=== PATIENT | female | born 1945 | race Caucasian/White ===

== ENCOUNTER 2018-02-22 16:51 | Emergency (ER) | payer OTHER ==
[~2018-02-22] VITALS: Ht 154.9 cm; Wt 71.7 kg
[~2018-02-22 16:51] MED LIST: ZITHROMAX Z-PA250 M1 PO; [UNRECOGNIZED DRUG - OTHER] PO
--- NOTE | 2018-02-22 17:17 | ED GI/GU/ABDOMINAL COMPLAINT ---
History of Present Illness General Chief Complaint: General Adult Stated Complaint: STOMACH PAIN,VOMITING,DIZZY Source: patient Exam Limitations: no limitations Vital Signs & Intake/Output Vital Signs & Intake/Output Vital Signs Date Time Temp Pulse Resp B/P B/P Pulse O2 O2 Flow FiO2 Mean Ox Delivery Rate 02/22 1724 69 18 144/78 98 Room Air Room Air 02/22 1723 69 144/78 02/22 1707 78 16 137/84 96 Room Air Allergies Coded Allergies: azithromycin (RASH 02/22/18) morphine (HIVES 02/22/18) erythromycin base (VOMITING 02/22/18) Reconcile Medications Azithromycin (Zithromax Z-Eddi) 250 MG CAP 1 DP PO AD pneumonia 2 the first day followed by 1 for days 2-5 Codeine Phosphate/Guaifenesi (Robafen AC Cough Syrup 10 MG/5 Ml-100 MG/5 Ml) 120 ML SYR 1-2 TSP PO Q6P PRN COUGH/COLD SYMPTOMS Montelukast Sodium (Singulair) 10 MG TABLET 1 TAB PO DAILY ALLERGIES ( Reported) Topiramate (Topamax) 50 MG TABLET 50 MG PO DAILY MIGRAINES (Reported) Verapamil HCl (Verapamil ER) 180 MG TABLET.ER 1 TAB PO DAILY MIGRAINES ( Reported) Triage Nurses Notes Reviewed? yes ? N Is pt currently ? No Onset: Abrupt Duration: day(s): (1), constant Timing: recent history Quality/Severity: vomiting Severity Numbers: 6 Location: epigastric, right upper quadrant Radiation: no radiation No Modifying Factors: none Associated Symptoms: abdominal pain (d), denies HPI: Pleasant 72-year-old female who presents to the emergency department for sudden onset of right upper quadrant pain and nausea and vomiting. She has had no history of diarrhea recently but does feels the urge to go. She tells had a prior history of gallstones in the past and has had similar symptoms. She recently had a left hand surgery for trigger finger this past week. She was given Percocet and feels that this may have caused some of her symptoms-last dose was yesterday. These symptoms came on after taking the first pill. no hemetemesis. no chest pain. no shortness of breath. She has a history of ulcers in the past and takes medication for her stomach daily. She describes her pain mostly in the right upper quadrant and right epigastric region. It has been constant. (Kevyn Mckeon) Past History Travel History Traveled to [place] past 21 day No Medical History Any Pertinent Medical History? see below for history Neurological: migraine Cardiovascular: hypertension (BORDERLINE) Respiratory: asthma Gastrointestinal: GERD Surgical History Surgical History: left hand surgery (trigger finger) Psychosocial History What is your primary language Slovenian Family History Hx Contributory? No (Kevyn Mckeon) Review of Systems Review of Systems Constitutional: Reports: see HPI. Comments Review of systems: See HPI, All other systems negative Constitutional: No fever no chills HEENT: no sore throat no congestionn Cardiovascular: No chest pain , no palpitation Skin: no rashes, no change in skin Respiratory: No dyspnea no cough no sputum no hemoptysis GI: See HPI, no diarrhea, no bloating/constipation : No dysuria No hematuria, no frequency Muscle skeletal: No joint pain, no back pain, no neck pain, Neurologic: , no headache Heme/endocrine: No bruising Immunology: No lymphadenopathy (Kevyn Mckeon) Physical Exam Physical Exam General Appearance: well developed/nourished, no apparent distress, alert, awake Gastrointestinal: normal bowel sounds, soft, tenderness, right upper quadrant tenderness negative Butterfield's sign Comments: Well-developed well-nourished person in no acute distress HEENT: Normal EENT exam; PERRL, EOMI, no nystagmus. HEAD is atraumatic. moist mucous membranes. Neck: Supple, normal range of motion without pain or tenderness Back: Nontender, no CVA tenderness. Full range of motion Cardiovascular: Regular rate and rhythms no murmurs rubs Respiratory: Chest nontender.There were no bony deformities, no asymmetry. No respiratory distress. Patient speaking in full complete sentences. Breath sounds clear to auscultation bilaterally: NO W/R/R Abdomen: Soft, epigastric right upper quadrant tenderness to palpation negative Butterfield sign nondistended, no appreciable organomegaly. Normal bowel sounds. No rebound/guarding, No appreciable enlargement of the abdominal aorta, No ascites. Extremity: No edema, full range of motion of extremities Neuro: Alert oriented x3, motor sensory normal, There were no obvious focal neurologic abnormalities. Skin: No appreciable rash on exposed skin, skin is warm and dry. No jaundice Psych: Mood and affect is normal, memory and judgment is normal. Core Measures ACS in differential dx? No Sepsis Present: No Sepsis Focused Exam Completed? No (Unruly PERERA,Kevyn) Progress Differential Diagnosis: AMI, bowel obstruction, cholecystitis, gastritis, hepatitis, hernia, inflamm bowel dis, intrauterine , pancreatitis, peptic ulcer, PUD/GERD, perforated viscous, SBO Plan of Care: Orders Procedure Date/time Status MISTAKE 02/22 1707 Active TROPONIN LEVEL 02/22 1707 Complete LIPASE 02/22 1707 Complete COMPREHENSIVE METABOLIC PANEL 02/22 1707 Complete CBC WITHOUT DIFFERENTIAL 02/22 1707 Complete EKG 02/22 1707 Active Laboratory Tests 02/22/18 172: Anion Gap 13, Estimated GFR > 60, BUN/Creatinine Ratio 13.8, Glucose 97, Calcium 9.9, Total Bilirubin 0.6, AST 29, ALT 30, Alkaline Phosphatase 76, Troponin I < 0.01, Total Protein 7.3, Albumin 4.2, Globulin 3.1, Albumin/Globulin Ratio 1.4, Lipase 59, CBC w Diff NO MAN DIFF REQ, RBC 5.44 H, MCV 80.8 L, MCH 27.1, MCHC 33.5, RDW 13.8, MPV 8.4, Gran % 71.1, Lymphocytes % 21.7, Monocytes % 5.6, Eosinophils % 1.1, Basophils % 0.5, Absolute Granulocytes 4.7, Absolute Lymphocytes 1.4, Absolute Monocytes 0.4, Absolute Eosinophils 0.1, Absolute Basophils 0 labs ordered, iv fluids and zofran 4 mg iv ordered 1819 pt resting in nad at thsi time, iv fluids running, d/w her all of her labs to date, nausea improoved 1829 discussed with the patient and her her ultrasound findings. She is tolerating by mouth challenge with ruby audrey she feels better her nausea and pain to the right upper side is resolved. Return precautions were discussed at plane she'll follow-up with her primary care physician advised bland diet clear liquids return precautions were discussed directly she will avoid taking the oxycodone any longer Diagnostic Imaging: Viewed by Me: Ultrasound. Discussed w/RAD: Ultrasound. Radiology Impression: PATIENT: KEYA VILLANUEVA PRESENT AGE: 72 PATIENT ACCOUNT NO: [id number] : 47 LOCATION: [facility] ORDERING PHYSICIAN: Kevyn PERERA SERVICE DATE: 02/22/18-1706 EXAM TYPE: US - US-LIMITED ABDOMEN EXAMINATION: ABDOMINAL ULTRASOUND LIMITED CLINICAL INFORMATION: Right upper quadrant pain. COMPARISON: None. TECHNIQUE: Real-time imaging of the right upper quadrant abdominal viscera. FINDINGS: PANCREAS: The visualized pancreatic head and body are normal in appearance. The remainder of the pancreas is obscured from visualization by the overlying bowel gas. LIVER: The liver is of normal size and echogenicity without focal lesions nor intrahepatic biliary ductal dilation. GALLBLADDER: There is a calculus within the gallbladder lumen. There is no wall thickening or pericholecystic fluid. COMMON BILE DUCT: Normal in caliber measuring 0.5 cm in diameter. RIGHT KIDNEY: Normal. No hydronephrosis. No renal calculi or focal parenchymal lesions. The kidney measures 9.2 cm in maximum dimension. FREE FLUID: None. IMPRESSION: Cholelithiasis without evidence of cholecystitis. DICTATED BY: Zelalem Harden MD DATE/TIME DICTATED:02/22/181808 ARCADE TECHNICIAN:JORGE DATE/TIME TRANSCRIBED:02/22/181808 CONFIDENTIAL, DO NOT COPY WITHOUT APPROPRIATE AUTHORIZATION. <Electronically signed in Other Vendor System> SIGNED BY: Zelalem Harden MD 02/22/181816 Initial ED EKG: normal intervals, normal p-waves, normal QRS complex, normal sinus rhythm (Kevyn Mckeon) Departure Departure Time of Disposition: 1839 Disposition: HOME OR SELF CARE Condition: Stable Clinical Impression Primary Impression: Nausea & vomiting Referrals: Ros NOLAN,Brenton Ontiveros (PCP/Family) Elvira NOLAN,Ernesto Remy Additional Instructions: zofran for nausea. bland diet. clear liquids- advance as tolerated. follow up with your pmd next week. Follow up with general surgeon dr herbert regarding your gallstones. return to the ER with any concerns Departure Forms: Customer Survey General Discharge Information (Kevyn Mckeon) PA/[employer] Co-Sign Statement Statement: ED Attending supervision documentation- [X] I saw and evaluated the patient. I have also reviewed all the pertinent lab results and diagnostic results. I agree with the findings and the plan of care as documented in the PA's/[employer]'s documentation. [X] I have reviewed the ED Record and agree with the PA's/[employer]'s documentation. [] Additions or exceptions (if any) to the PAs/[employer]'s note and plan are summarized below: [] (Kelli NOLAN,Keanu Mendez)
[2018-02-22] MEDS ORDERED: VERAPAMIL ER180 M1 PO (17:26)
[2018-02-22] MEDS ORDERED: SINGULAIR10 M1 PO (17:27)
[2018-02-22] MEDS ORDERED: TOPAMAX50 M1 PO (17:28)
[2018-02-22 17:37] LABS: ABSOLUTE BASOPHIL COUNT 0 /CUMM (0.0-0.2); ABSOLUTE EOSINOPHIL COUNT 0.1 /CUMM (0.0-0.7); ABSOLUTE GRANULOCYTE CT 4.7 /CUMM (1.4-6.5); ABSOLUTE LYMPH COUNT 1.4 /CUMM (1.2-3.4); ABSOLUTE MONOCYTE COUNT 0.4 /CUMM (0.10-0.60); BASOPHIL % 0.5 % (0.0-2.0); EOSINOPHIL % 1.1 % (0-5); GRANULOCYTE % 71.1 % (42.2-75.2); HEMATOCRIT 43.9 % (37-47); MEAN CORPUSCULAR HGB 27.1 PG (27.0-31.0); MEAN CORPUSCULAR HGB CONC 33.5 G/DL (33.0-37.0); MEAN CORPUSCULAR VOLUME 80.8 FL (81.0-99.0); MEAN PLATELET VOLUME 8.4 FL (7.4-10.4); PLATELET COUNT 306 /CUMM (130-400); RBC DISTRIBUTION WIDTH 13.8 % (11.5-14.5); RED BLOOD CELL CT 5.44 /CUMM (4.20-5.40); WHITE BLOOD CELL COUNT 6.7 /CUMM (4.8-10.8)
--- NOTE | 2018-02-22 18:17 | ULTRASOUND REPORT ---
EXAMINATION: ABDOMINAL ULTRASOUND LIMITED CLINICAL INFORMATION: Right upper quadrant pain. COMPARISON: None. TECHNIQUE: Real-time imaging of the right upper quadrant abdominal viscera. FINDINGS: PANCREAS: The visualized pancreatic head and body are normal in appearance. The remainder of the pancreas is obscured from visualization by the overlying bowel gas. LIVER: The liver is of normal size and echogenicity without focal lesions nor intrahepatic biliary ductal dilation. GALLBLADDER: There is a calculus within the gallbladder lumen. There is no wall thickening or pericholecystic fluid. COMMON BILE DUCT: Normal in caliber measuring 0.5 cm in diameter. RIGHT KIDNEY: Normal. No hydronephrosis. No renal calculi or focal parenchymal lesions. The kidney measures 9.2 cm in maximum dimension. FREE FLUID: None. IMPRESSION: Cholelithiasis without evidence of cholecystitis.
[2018-02-22 19:05] VITALS: BP 136/74
== END 2018-02-22 19:07 ==
LOC: ERH 16:51
PROVIDERS: Physician Assistant Medical
DX: R11.2 Nausea with vomiting, unspecified (principal)
CPT/HCPCS: 93005; 93010; 96374; J2405